=== PATIENT | male | born 1975 | race Two or more races ===

== ENCOUNTER 2022-10-30 15:14 | Emergency (ER) | payer OTHER ==
[2022-10-30 15:35] VITALS: BP 133/92; PULSE 74; RESP 20; TEMP 98.5; BMI 29.8
[2022-10-30] MEDS ORDERED: diphenhydrAMINE HCL 25 MG CAPSULE (FP) PO ONE ×2 (16:25→16:43)
== END 2022-10-30 16:58 | disposition home or self-care (01) ==
LOC: FER 15:14
DX: L23.7 Allergic contact dermatitis due to plants, except food (principal); R21 Rash and other nonspecific skin eruption
CPT/HCPCS: 99283-25

== ENCOUNTER 2024-06-22 15:59 | Emergency (ER) | payer SELFPAY ==
[2024-06-22 16:10] VITALS: BP 122/86; PULSE 75; RESP 16; TEMP 97.9; BMI 22.9
[2024-06-22] MEDS ORDERED: ACETAMINOPHEN 500 MG TABLET (FP) ONE (16:57)
[2024-06-22] MEDS: ACETAMINOPHEN 500 MG TABLET (FP) PO ONE (16:59)
== END 2024-06-22 17:45 | disposition home or self-care (01) ==
LOC: FER 15:59
DX: J10.1 Influenza due to other identified influenza virus with other respiratory manifestations (principal); E86.0 Dehydration; R53.1 Weakness; R05.9 Cough, unspecified; R19.7 Diarrhea, unspecified; Z20.822 Contact with and (suspected) exposure to COVID-19
CPT/HCPCS: 0241U-QW; 99283-25